=== PATIENT | male | born 1955 | race African-American/Black ===

== ENCOUNTER 2016-10-08 01:31 | Emergency (ER) | payer OTHER ==
--- NOTE | ~2016-10-08 | CR20 ---
[facility] A Service of [facility] & [facility] RADIOLOGY TEXT RESULTS PATIENT: SPEEDY LYN LOCATION: [facility] : 53 UNIT #: [id number] AGE: [address]: Vinayak Omer MD SEX: M ORDER DR: [id number] [facility] [address] [place], [place] [address] [id number] E MR#: [id number] Acc #: [id number] NAME: SPEEDY LYN : 1955 SEX: M STUDY DATE/TIME: 10/08/2016 01:57 UNIT: [facility] ROOM: STUDY DESCRIPTION: CR Ankle Min 3 Views Lt Attending Physician: Vinayak Omer M.D. Ordering Physician: Vinayak Omer M.D. Primary Care Physician: Jonathan Long M.D., Ph.D. MEDICAL IMAGING REPORT This report is preliminary unless electronic signature is present EXAM Left ankle. DATE OF EXAM 10/08/2016 at 01:57. INDICATIONS Pain and soft tissue swelling for 1 day. No trauma. FINDINGS 3 views of the left ankle were obtained. There are no comparisons. There is fairly diffuse soft tissue swelling. No fracture or malalignment is seen. No convincing tibiotalar joint effusion. No soft tissue gas. IMPRESSION Diffuse soft tissue swelling without fracture or soft tissue gas. No definitive joint effusion. Dictated by... Vinayak Garcia Jr., M.D. THIS IS AN ELECTRONICALLY VERIFIED REPORT Vinayak Garcia Jr., M.D. at 10/08/2016 11:00 PM JOSEF/josette TD: 10/08/2016 16:58 JOB #: [id number] MEDICAL IMAGING REPORT COPY
--- NOTE | ~2016-10-08 | EKG ---
PATIENT: SPEEDY LYN UNIT #: [id number] Ventricular Rate: 81 BPM Atrial Rate: 81 BPM P-R Interval: 134 ms QRS Duration: 82 ms Q-T Interval: 418 ms QTC Calculation(Bezet): 485 ms P [place]: 60 degrees Calculated R [place]: -37 degrees Calculated T [place]: 43 degrees Diagnosis Line: Normal sinus rhythm Diagnosis Line: Left axis deviation Diagnosis Line: Abnormal ECG Diagnosis Line: When compared with ECG of 26-MAY-2016 01:36, Diagnosis Line: Non-specific change in ST segment in Anterior Diagnosis Line: leads Diagnosis Line: Confirmed by OMAYRA AKINS MD ([id number]) on Diagnosis Line: 10/11/2016 3:58:34 PM INTERPRETING MD: TASHI PATEL
--- NOTE | ~2016-10-08 | CR72 ---
[facility] A Service of [facility] & [facility] RADIOLOGY TEXT RESULTS PATIENT: SPEEDY LYN LOCATION: [facility] : 53 UNIT #: [id number] AGE: [address]: Vinayak Omer MD SEX: M ORDER DR: [id number] [facility] [address] [place], [place] [address] [id number] E MR#: [id number] Acc #: [id number] NAME: SPEEDY LYN : 1955 SEX: M STUDY DATE/TIME: 10/08/2016 01:17 UNIT: [facility] ROOM: STUDY DESCRIPTION: CR Chest Single View Portable Attending Physician: Vinayak Omer M.D. Ordering Physician: Vinayak Omer M.D. Primary Care Physician: Jonathan Long M.D., Ph.D. MEDICAL IMAGING REPORT This report is preliminary unless electronic signature is present EXAM Portable chest. DATE OF EXAM 10/08/2016, at 01:17. INDICATIONS Shortness of air, cough, and congestion for 1 day. FINDINGS AP portable chest compared with 05/26/2016. Cardiac and mediastinal contours are stable. The lungs are emphysematous. There is some stable chronic scarring in the right upper lobe and left base. No acute infiltrates. No pneumothorax. IMPRESSION Emphysema with chronic scarring in the lungs as above. No acute findings in the chest. Dictated by... Vinayak Garcia Jr., M.D. THIS IS AN ELECTRONICALLY VERIFIED REPORT Vinayak Garcia Jr., M.D. at 10/08/2016 11:00 PM JOSEF/josette TD: 10/08/2016 16:54 JOB #: [id number] MEDICAL IMAGING REPORT COPY
--- NOTE | ~2016-10-08 | CT71 ---
[facility] A Service of [facility] RADIOLOGY TEXT RESULTS PATIENT: SPEEDY LYN LOCATION: [facility] : 51 UNIT #: [id number] AGE: [address]: Vinayak Omer MD SEX: M ORDER DR: [id number] [facility] [address] [place], [place] [address] [id number] E MR#: [id number] Acc #: [id number] NAME: SPEEDY LYN : 1955 SEX: M STUDY DATE/TIME: 10/08/2016 02:55 UNIT: [id number] ROOM: STUDY DESCRIPTION: CT Head Wo Contrast Attending Physician: Vinayak Omer M.D. Ordering Physician: Vinayak Omer M.D. Primary Care Physician: Jonathan Long M.D., Ph.D. MEDICAL IMAGING REPORT This report is preliminary unless electronic signature is present EXAM Head CT. DATE OF EXAM 10/08/2016, at 0255 hours. INDICATIONS Left side weakness with mental status changes and headaches today. TECHNIQUE Axial images were obtained from the base to the vertex without contrast. NOTE: This CT exam was performed with one or more of the following radiation dose reduction techniques: automatic exposure control, adjustment of mA and/or kV according to patient size, and iterative reconstruction. COMPARISON Comparison made with 05/10/2010. FINDINGS Exam is motion degraded. There is some artifact from a right side cochlear implant. Ventricular size and configuration are normal. No acute infarct or hemorrhage is seen. There are no masses. There is chronic small vessel ischemic disease in the white matter. There are some atherosclerotic calcifications in the carotid siphons. No skull fracture. IMPRESSION Motion degraded exam, but there are no acute cranial abnormalities. Patient has a right side cochlear implant. Dictated by... Vinayak Garcia Jr., M.D. [facility] A Service of [facility] RADIOLOGY TEXT RESULTS PATIENT: SPEEDY LYN LOCATION: [facility] : 51 UNIT #: [id number] AGE: [address]: Vinayak Omer MD SEX: M ORDER DR: THIS IS AN ELECTRONICALLY VERIFIED REPORT Vinayak Garcia Jr., M.D. at 10/08/2016 11:00 PM JOSEF/josette TD: 10/08/2016 17:35 JOB #: [id number] MEDICAL IMAGING REPORT COPY
[~2016-10-08 01:31] MED LIST: CLARITIN10 MG PO; FOLIC ACID1 MG PO; LISINOPRIL PO/SL; POTASSIUM CHLO10 ME1 PO; PROTONIX PO; SALINE MIST45 M1; VICODIN 5/1 TAB 5/50 PO; VITAMIN B-1000 MCG/1 INJ; ZYLOPRIM PO; ZYLOPRIM100 MG DOB
[2016-10-08 01:49] LABS: BASOPHIL% 0.9 % (0-2.5); DIFF IND YES; EOSINOPHIL# 0.1 X10e3 (0-0.7); EOSINOPHIL% 2.1 % (0.0-7.0); HEMATOCRIT 42.5 % (38.0-50.0); HEMOGLOBIN 14.3 gm/dL (13.0-16.0); LYMPHOCYTE# 2.8 X10e3 (1.0-3.5); MEAN CELL VOLUME 86.9 FL (83-96); MEAN CORPUSCULAR HEMOGLOBIN 29.3 PG (28-34); MEAN CORPUSCULAR HGB CONC 33.7 g/dL (30-36); MEAN PLATELET VOLUME 7.4 FL (6.5-11.5); MONOCYTE# 0.3 X10e3 (0-1.0); MONOCYTE% 7.9 % (3.0-12.0); NEUTROPHIL# 0.9 X10e3 (1.5-7.1); NEUTROPHIL% 21.1 % (40-75); PLATELET COUNT 170 X10e3 (140-420); RED BLOOD COUNT 4.88 X10e (3.90-5.60); RED CELL DISTRIBUTION WIDTH 21.8 % (11.0-15.5); WHITE BLOOD COUNT 4.1 X10e3 (4.0-10.5)
[2016-10-08 02:04] LABS: ALBUMIN SERUM 3.4 g/dL (3.5-5.0); ALKALINE PHOSPHATASE 77 U/L (32-92); ALT (SGPT) 15 U/L (10-40); AST (SGOT) 30 U/L (10-42); BILIRUBIN, DIRECT 0.1 mg/dL (0.0-0.2); BILIRUBIN,INDIRECT 0.8 mg/dL (0.0-0.9); BILIRUBIN,TOTAL 0.9 mg/dL (0.2-2.0); BLOOD UREA NITROGEN 10 mg/dL (9-23); BUN/CREATININE RATIO 14.28; CALCIUM SERUM 8.3 mg/dL (8.4-10.2); CARBON DIOXIDE 26 mmol/L (22-31); CHLORIDE 108 mmol/L (100-111); CREATININE SERUM 0.7 mg/dL (0.6-1.4); GLOM FILT RATE Estimated ABOVE60 mL/min (>60); GLUCOSE FASTING 84 mg/dL (70-110); POTASSIUM 3.5 mmol/L (3.5-5.1); PROTEIN TOTAL SERUM 8.7 g/dL (6.0-8.3); SODIUM 142 mmol/L (135-145)
[2016-10-08 02:05] LABS: PLATELET ESTIMATE NORMAL (NORMAL)
[2016-10-08 02:12] LABS: ALCOHOL BLOOD 292 mg/dL (0)
[2016-10-08 02:26] LABS: URINE SOURCE CLEAN CATCH
[2016-10-08 02:31] LABS: URINE APPEARANCE CLEAR; URINE BILIRUBIN NEG (NEG); URINE BLOOD NEG (NEG); URINE COLOR YELLOW; URINE GLUCOSE NEG (NEG); URINE KETONE NEG (NEG); URINE LEUKOCYTE ESTERASE NEG (NEG); URINE NITRATE NEG (NEG); URINE PH 5.5 (5-8); URINE PROTEIN NEG (NEG); URINE SPECIFIC GRAVITY 1.014 (1.003-1.035)
[2016-10-08 02:40] LABS: AMPHETAMINE NEG (NEG); BARBITURATES NEG (NEG); BENZODIAZEPINES NEG (NEG); COCAINE NEG (NEG); MARIJUANA NEG (NEG); OPIATES NEG (NEG); TRICYCLIC ANTIDEPRESSANTS NEG (NEG); U METHADONE NEG (NEG)
[2016-10-08 02:46] LABS: CULTURE INDICATED? NO
== END 2016-10-08 04:05 | disposition home or self-care (01) ==
LOC: CED 01:31
PROVIDERS: Emergency Medicine
DX: F10.129 Alcohol abuse with intoxication, unspecified (principal); M79.89 Other specified soft tissue disorders; F17.200 Nicotine dependence, unspecified, uncomplicated; Z79.899 Other long term (current) drug therapy
CPT/HCPCS: 36415; 70450; 71010; 73610; 80048; 80076; 80307; 81003; 84550; 85025; 93005; 99284; G0480